=== PATIENT | male | born 1975 | race Native Hawaiian/Other Pacific Islander ===

== ENCOUNTER 2017-01-12 17:33 | Emergency (ER) | payer SELFPAY ==
[2017-01-12 18:13] LABS: Basophils % (Auto) 0.5 % (0.0-1.8); Eosinophils % (Auto) 4.8 % (0.0-4.3); Hematocrit 42.6 % (35.5-45.6); Hemoglobin 14.7 gm/dl (11.8-15.2); Mean Corpuscular HGB Conc 35 % (32-34); Mean Corpuscular Hemoglobin 30 pg (28-32); Mean Corpuscular Volume 85 fl (84-94); Platelet Count 312 K/mm3 (140-440); Red Cell Distribution Width 12.9 % (13.2-15.2); White Blood Count 7.7 K/mm3 (4.5-11.0)
[2017-01-12 18:27] LABS: Anion Gap 18 mmol/L; BUN/Creatinine Ratio 28.57; Blood Urea Nitrogen 20 mg/dL (9-20); Calcium 9.6 mg/dL (8.4-10.2); Carbon Dioxide 28 mmol/L (22-30); Chloride 98.3 mmol/L (98-107); Glucose 108 mg/dL (75-100); Potassium 4.8 mmol/L (3.6-5.0); Sodium 139 mmol/L (137-145)
[2017-01-12 18:33] LABS: INR 0.96 (0.87-1.13)
[2017-01-12 18:34] LABS: Partial Thromboplastin Time 27.1 Sec. (24.2-36.6)
--- NOTE | 2017-01-13 03:13 | Emergency Department Report ---
ED General Adult HPI - General Chief complaint: Dyspnea/Respdistress Stated complaint: EVALUATE FOR PE Time Seen by Provider: 01/13/17 03:05 Source: patient Mode of arrival: Ambulatory Limitations: No Limitations - History of Present Illness Initial comments: 41-year-old male with no past medical history presenting today because of shortness of breath. Patient states a couple weeks ago he noticed that his pain to the left ribs which went away after a few days but has some osteoporosis that she's been having difficulty catching his breath. He denies any pain, he does have some rhinorrhea and occasional cough is nonproductive. Denies any recent major surgery, immobilization, long car or airplane trips. She does not have any calf pain or leg pain or swelling although he does have some history of chronic sciatica. - Related Data Allergies Allergy/AdvReac Type Severity Reaction Status Date / Time No Known Allergies Allergy Verified 01/12/17 17:47 ED Review of Systems ROS: Stated complaint: EVALUATE FOR PE Other details as noted in HPI Comment: All other systems reviewed and negative Constitutional: denies: chills, fever Respiratory: cough, shortness of breath Cardiovascular: denies: chest pain Gastrointestinal: denies: vomiting Genitourinary: denies: dysuria Skin: denies: rash Psychiatric: denies: anxiety ED Past Medical Hx - Past Medical History Previous Medical History?: No - Surgical History Past Surgical History?: No - Social History Smoking Status: Never Smoker Substance Use Type: None ED Physical Exam - General Limitations: No Limitations General appearance: alert, in no apparent distress - Head Head exam: Present: atraumatic - Respiratory Respiratory exam: Present: normal lung sounds bilaterally. Absent: respiratory distress - Cardiovascular Cardiovascular Exam: Present: regular rate, normal rhythm - GI/Abdominal GI/Abdominal exam: Present: soft. Absent: distended, tenderness - Extremities Exam Extremities exam: Present: normal inspection - Neurological Exam Neurological exam: Present: oriented X3 - Psychiatric Psychiatric exam: Present: normal affect - Skin Skin exam: Present: intact ED Course Vital Signs 01/12/17 17:43 Temperature 98.3 F Pulse Rate 75 Respiratory 16 Rate Blood Pressure 156/91 O2 Sat by Pulse 99 Oximetry ED Medical Decision Making - Lab Data Result diagrams: 01/12/17 17:56 01/12/17 17:56 - Medical Decision Making 01/13/17 03:11 X-ray, labs, EKG, CTA ordered X-ray appears unremarkable, labs are unremarkable, CT pending 01/13/17 03:12 EKG shows normal sinus rhythm at a rate of 64, QTC is 406, normal axis, no ST-T changes CTA negative for PE, patient given the results of the scan, is stable for discharge Critical care attestation.: If time is entered above; I have spent that time in minutes in the direct care of this critically ill patient, excluding procedure time. ED Disposition Clinical Impression: Shortness of breath Disposition: DISCHARGED TO HOME OR SELFCARE Is pt being admited?: No Does the pt Need Aspirin: No Condition: Stable Instructions: Dyspnea (ED) Additional Instructions: Please follow up with the primary care physician in the next 3-5 days. Return to the ER if your symptoms significantly worsen or you develop new symptoms. Referrals: DAISHA PERES MD [Primary Care Provider] - 3-5 Days
--- NOTE | 2017-01-13 04:07 | Cat Scan Report ---
FINAL REPORT PROCEDURE: CT ANGIO CHEST TECHNIQUE: Computerized axial tomographic angiography of the chest and pulmonary arteries was performed after the IV injection of iodinated nonionic contrast. The image data was postprocessed using maximum intensity projection (MIP) and 2-dimensional multiplanar reformatted (MPR) techniques. The examination is specifically tailored to the evaluation of the pulmonary arteries per clinical request. HISTORY: Short of breath 786.09, chest pain 786.50, chest pain COMPARISON: No prior studies are available for comparison. FINDINGS: Heart and pericardium: Normal. Thoracic aorta: Normal. Pulmonary vasculature: Normal. No pulmonary emboli. Lymph nodes: No enlarged thoracic lymph nodes. Lungs: Normal. Pleural space: No effusion, thickening, or pneumothorax. Musculoskeletal structures: No significant abnormality. Upper abdominal structures: No significant abnormality. IMPRESSION: There are no pulmonary emboli. There is no thoracic aortic aneurysm or dissection. Lungs are clear.
[2017-01-13 04:57] VITALS: BP 126/90
== END 2017-01-13 04:55 | disposition home or self-care (01) ==
LOC: ED 17:33
DX: R06.02 Shortness of breath (principal)
CPT/HCPCS: 36415; 71020; 71275; 80048; 83880; 84484; 85025; 85379; 85610; 85730; 93005; 93010; 99284; Q9967